=== PATIENT | male | born 1960 | race Caucasian/White ===

== ENCOUNTER 2018-07-31 17:12 | Emergency (ER) | payer MEDICAID ==
--- NOTE | 2018-07-31 17:16 | EDPHY ---
H & P Time Seen by Provider: 07/31/18 17:14 HPI/ROS: HPI Alcohol intoxication. Combative. 42-year-old homeless male brought in by ambulance in with [place] police for alcohol intoxication. The patient was found in the parking lot of a [employer] intoxicated and unable to ambulate. He was combative with EMS. Secondary to this EMS reports he was given 5 mg of intramuscular Versed. On the way to the emergency department the patient became apneic. Jaw thrust and a couple of breast by bag bowel amounts were applied. The patient then resumed breathing spontaneously but has been unresponsive since this time. There is no history of trauma or assault. ROS: Constitutional: No fever, no chills. As above. Eyes: No discharge. No changes in vision. ENT: No sore throat. No nasal congestion or rhinorrhea. Respiratory: No cough. No shortness of breath. Cardiac: No chest pain, no palpitations. Gastrointestinal: No abdominal pain, no vomiting, no diarrhea. Genitourinary: No hematuria. No dysuria or increased frequency with urination. Musculoskeletal: No back pain. No neck pain. No myalgias or arthralgias. Skin: No rashes. Neurological: No headache. No focal weakness or altered sensation. Past medical history: Unknown. Social history: Homeless. As above. Physical Exam: General Appearance: Dirty, disheveled, sonorous respirations. Strong odor of alcohol on his breath. This patient appears generally well-hydrated and well- nourished. Eyes: Pupils equal and round at 3-2 mm bilaterally, no pallor or injection. No lid edema, erythema or injection. ENT, Mouth: Mucous membranes are moist. Poor dentition. The pharyngeal tissues are unremarkable. No edema or swelling. No asymmetry suggestive of abscess. No erythema or exudates. Respiratory: There are no retractions, lungs are clear to auscultation with good air movement bilaterally. Cardiovascular: Regular rate and rhythm. No murmur. Gastrointestinal: Abdomen is soft and nontender, no masses, bowel sounds normal. No focal tenderness at McBurney's point. No Marmolejo sign. Neurological: Motor sensory function is grossly intact. Cranial nerves are normal. Skin: Warm and dry, no rashes. Musculoskeletal: Neck is supple and nontender. Extremities are symmetrical. All joints range without pain or impingement. Psychiatric: As above. Database: EKG: Imaging: Procedures: Emergency department course: Triage vital signs reviewed. Patient was initially placed in room 2 are I evaluated him. He was placed on a personnel monitor. He was placed on a non- rebreather face mask. Nasal trumpet was placed in the right nares. Patient is breathing spontaneously. Pulse oximetry on face mask oxygen 100%. Advanced airway to the bedside. Patient was observed in room to for a period of time the transferred to room 17 where he will be monitored while he continues to sober. 9:00 p.m., patient re-evaluated. The patient had an episode of hypotension with systolic down to 55 and hypoxia with pulse oximetry to 80%. He is placed on oxygen. His clothing was removed. He woke, he was responding to questioning , repeat blood pressure check 94/48. Patient to be given a L of IV normal saline. Pulse oximetry on 5 L face mask oxygen is 94%. 10:00 p.m., patient was re-evaluated. He is currently cyst sleeping. He is talking in his sleep. Room air oxygen saturation is 92%. On 2 L he is in the high 90s. Blood pressure currently 85/51. monitoring manager shows a narrow complex sinus rhythm ventricular rate of 85. Serum alcohol is 420. 11:00 p.m., the patient is currently sleeping. monitoring manager shows a narrow complex sinus rhythm with ventricular rate of 95. He is receiving IV normal saline. Pulse oximetry on 2 L of nasal cannula oxygen is 98%. Plan at this time is to allow him to further metabolize in the emergency department. His care will be turned over to Dr. Richard Leon. Expected disposition is discharge to the [facility] when appropriate. Differential Diagnosis: The differential diagnosis on this patient includes but is not limited to alcohol intoxication, medication reaction. CVA, seizure, traumatic brain injury , unlikely. This represents a partial list of diagnoses considered. These considerations are based on history, physical exam, past history, reassessment and diagnostic testing. (Terry Ann) Constitutional: Initial Vital Signs Temperature (C) 34.5 C L 07/31/18 17:12 Heart Rate 105 H 07/31/18 17:12 Respiratory Rate 16 07/31/18 17:12 Blood Pressure 130/87 H 07/31/18 17:12 O2 Sat (%) 98 1014/18 17:12 O2 Delivery Mode Room Air O2 (L/minute) 15 Allergies/Adverse Reactions: No Known Allergies Allergy (Unverified 08/01/18 02:29) Home Medications: Medication Instructions Recorded NK [No Known Home Meds] 08/01/18 Medical Decision Making ED Course/Re-evaluation: 0428: Patient was sent to the [facility]. Libirum provided. (Richard Leon) - Data Points Laboratory Results: Laboratory Results 07/31/18 17:28 07/31/18 17:28 07/31/18 07/31/18 17:28 17:28 WBC 4.25 10^3/uL 10^3/uL (3.80-9.50) RBC 4.41 10^6/uL 10^6/uL (4.40-6.38) Hgb 14.5 g/dL g/dL (13.7-17.5) Hct 42.9 % % (40.0-51.0) MCV 97.3 fL fL (81.5-99.8) MCH 32.9 pg pg (27.9-34.1) MCHC 33.8 g/dL g/dL (32.4-36.7) RDW 14.9 % % (11.5-15.2) Plt Count 90 10^3/uL L 10^3/uL (150-400) MPV 10.5 fL fL (8.7-11.7) Neut % (Auto) 44.9 % % (39.3-74.2) Lymph % (Auto) 38.6 % % (15.0-45.0) [place] % (Auto) 11.1 % % (4.5-13.0) Eos % (Auto) 4.7 % % (0.6-7.6) Baso % (Auto) 0.5 % % (0.3-1.7) Nucleat RBC Rel Count 0.0 % % (0.0-0.2) Absolute Neuts (auto) 1.91 10^3/uL 10^3/uL (1.70-6.50) Absolute Lymphs (auto) 1.64 10^3/uL 10^3/uL (1.00-3.00) Absolute Monos (auto) 0.47 10^3/uL 10^3/uL (0.30-0.80) Absolute Eos (auto) 0.20 10^3/uL 10^3/uL (0.03-0.40) Absolute Basos (auto) 0.02 10^3/uL 10^3/uL (0.02-0.10) Absolute Nucleated RBC 0.00 10^3/uL 10^3/uL (0-0.01) Immature Gran % 0.2 % % (0.0-1.1) Immature Gran # 0.01 10^3/uL 10^3/uL (0.00-0.10) Sodium 145 mEq/L mEq/L (135-145) Potassium 3.4 mEq/L mEq/L (3.3-5.0) Chloride 102 mEq/L mEq/L (97-110) Carbon Dioxide 24 mEq/l mEq/l (22-31) Anion Gap 19 mEq/L H mEq/L (6-14) BUN 15 mg/dL mg/dL (7-23) Creatinine 0.8 mg/dL mg/dL (0.7-1.3) Estimated GFR > 60 Glucose 103 mg/dL H mg/dL (70-100) Calcium 8.9 mg/dL mg/dL (8.5-10.4) Ethyl Alcohol 420 mg/dL H* mg/dL (0-10) Medications Given: Discontinued Medications Chlordiazepoxide (Librium 25 Mg Prepack#6) 1 btl TAKEHOME EDNOW ONE Stop: 08/01/18 04:06 Last Admin: 08/01/18 04:07 Dose: 1 btl Sodium Chloride (Ns) 1,000 mls @ 0 mls/hr IV ONCE ONE; Wide Open PRN Reason: Protocol Stop: 07/31/18 21:05 Last Admin: 07/31/18 21:11 Dose: 1,000 mls Lorazepam (Ativan Injection) 2 mg IVP EDNOW ONE Stop: 08/01/18 02:17 Last Admin: 08/01/18 02:48 Dose: 2 mg Ondansetron HCl (Zofran Odt 4 Mg Prepack#2) 1 btl TAKEHOME EDNOW ONE Stop: 08/01/18 04:06 Last Admin: 08/01/18 04:08 Dose: 1 btl Departure - Departure Disposition: Home, Routine, Self-Care Clinical Impression: Alcoholic intoxication Condition: Good Instructions: Chlordiazepoxide/Clidinium (By mouth), Ondansetron (By mouth), Abuse of Alcohol (ED) Additional Instructions: Read and follow provided instructions. Return to the emergency department for worsening symptoms or other serious concerns. Referrals: [facility] Hours [Outside] - As per Instructions
[2018-07-31] MEDS ORDERED: NS 1,000 ML IV ONE (21:04)
[2018-07-31 21:12] LABS: PLATELET COUNT 90 10^3/uL (150-400)
[2018-08-01] MEDS ORDERED: LORazepam 2 MG/ML INJ IVP ONE (02:16)
[2018-08-01 03:44] VITALS: BP 108/61
[2018-08-01] MEDS ORDERED: ONDANSETRON 4MG PREPACK#2 BTL TAKEHOME ONE (04:05)
[2018-08-01] MEDS ORDERED: CHLORDIAZEPOXIDE 25MG PREPK#6 BTL TAKEHOME ONE (04:05)
== END 2018-08-01 04:36 | disposition home or self-care (01) ==
LOC: EDBD 17:12
DX: F10.920 Alcohol use, unspecified with intoxication, uncomplicated (principal); E86.9 Volume depletion, unspecified; Y90.8 Blood alcohol level of 240 mg/100 ml or more; Z59.0 Homelessness
CPT/HCPCS: 96374; G0480; J2060